=== PATIENT | male | born 1955 | race Caucasian/White ===

== ENCOUNTER 2019-06-08 20:30 | Outpatient (CLI) | payer BC | END 2019-06-08 20:31 | disposition home or self-care (01) | LOC: SLEEPLAB 20:30 | PROVIDERS: ATTEND Family Medicine | DX: G47.33 Obstructive sleep apnea (adult) (pediatric) (principal); G47.61 Periodic limb movement disorder; G47.9 Sleep disorder, unspecified; R53.83 Other fatigue; R40.0 Somnolence; G31.84 Mild cognitive impairment of uncertain or unknown etiology; K21.9 Gastro-esophageal reflux disease without esophagitis; E66.9 Obesity, unspecified; R06.83 Snoring; F41.9 Anxiety disorder, unspecified; I10 Essential (primary) hypertension; R73.03 Prediabetes; Z68.34 Body mass index [BMI] 34.0-34.9, adult | CPT/HCPCS: 95811 ==

== ENCOUNTER 2020-01-26 06:32 | Outpatient (CLI) | payer BC ==
[2020-01-26 11:40] LABS: #Basophils 0.1 10x3/uL (0.0-0.2); #Eosinphils 0.2 10x3/uL (0.0-0.5); #Monocytes 0.4 10x3/uL (0.0-1.1); #Neutrophils 3.4 10x3/uL (1.5-8.4); %Basophils 0.8 % (0.0-2.0); %Eosinophils 3.7 % (0.0-6.0); %Lymphocytes 31.6 % (18.0-47.0); %Monocytes 6.5 % (0.0-10.0); %Neutrophils 56.7 % (40.0-75.0); Hemoglobin 14.1 g/dL (14.0-18.0); Mean Corpuscular HGB CONC 33.3 G/DL (32.0-36.0); Mean Corpuscular Volume 87.1 fl (80.0-100.0); Mean Platelet Volume 9.5 fl (7.4-10.4); Platelet Count 201 10x3/uL (130-400); RBC Distribution Width 12.8 % (11.5-14.5); Red Blood Cell (RBC) Count 4.87 10x6/uL (4.40-5.80)
[2020-01-26 11:53] LABS: Anion Gap 16 mmol/L (10-20); BUN (Urea Nitrogen) 18 mg/dL (8.4-25.7); Calc. Creatinine Clearance 0 mL/min (70-130); Calcium 9.3 mg/dL (7.8-10.44); Carbon Dioxide 27 mmol/L (23-31); Chloride 108 mmol/L (98-107); Estimated GFR-MDRD 71; Glucose 154 mg/dL (80-115); Potassium 4.5 mmol/L (3.5-5.1); Sodium 146 mmol/L (136-145)
[2020-01-26 23:43] LABS: SARS-CoV-2 MS2 Positive; SARS-CoV-2 N Gene Negative; SARS-CoV-2 S Gene Negative; SARS-CoV-2 by NAA Not Detected (NotDetected); SARS-CoV-2 orf1ab Negative
== END 2020-01-26 06:33 | disposition home or self-care (01) ==
LOC: LABBT 06:32
PROVIDERS: ATTEND Orthopaedic Surgery
DX: Z01.818 Encounter for other preprocedural examination (principal); Z20.828 Contact with and (suspected) exposure to other viral communicable diseases; S83.242A Other tear of medial meniscus, current injury, left knee, initial encounter
CPT/HCPCS: 80048; 85025; 87635; 93005; 93010; U0003

== ENCOUNTER → 2020-01-29 | Day surgery (SDC) | payer BC ==
[2020-01-28 09:31] VITALS: BMI 31.3
[~2020-01-29] MED LIST: Bupivacaine 0.25% HCL 30 ML VIAL ONE; Bupivacaine HCl 0.5%/Epinephrine 1:200,000/PF 30 ml Vial ONE; Bupivacaine PF 0.5% 30 ML VIAL ONE; Dexamethasone 20 MG/5 ML VIAL ONE; Fentanyl 100 MCG/2 ML VIAL ONE; Lidocaine 1% (PF) 30 ML VIAL ONE; Lidocaine 1% PF 5 ML VIAL ONE; Lidocaine 1% w/Epinephrine 1:100K 20 ML VIAL ONE; Lidocaine 2% w/Epinephrine 1:200K 20 ML VIAL ONE; Ondansetron PF 4 MG/2 ML Vial ONE; PHENYLEPHRINE-NS 100 MCG/ML 10 ML SYRINGE ONE; PROPOFOL 20 ML ONE; PROPOFOL 200 MG/20 ML VIAL ONE; ePHEDrine 50 MG/ML VIAL ONE
--- NOTE | 2020-01-29 09:04 | OP ---
DATE OF PROCEDURE: 01/29/2020 TITLE OF PROCEDURE: Left knee arthroscopic partial medial meniscectomy. PREOPERATIVE DIAGNOSIS: Medial meniscus tear. POSTOPERATIVE DIAGNOSIS: Medial meniscus tear. ANESTHESIA: General. BLOOD LOSS: Minimal. SPECIMENS: None. DRAINS: None. COMPLICATIONS: None. DESCRIPTION OF PROCEDURE: After appropriate consent was obtained, the patient was taken to the operating room where general anesthesia was induced. Left leg was prepped and draped in the usual sterile fashion. Scope was placed in the lateral portal. Probe was placed in the medial portal. He had a complex tear involving most of the posterior medial meniscus including the posterior root. I debrided this using basket forceps and smoothed using a 4.0 full-radius resector. 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 Lateral compartment is intact. 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 Suprapatellar pouch was irrigated. There were no loose bodies. The knee was drained. Sterile dressing was applied. Job ID: [id number]
== END ==
LOC: SDC 06:01
PROVIDERS: ATTEND Orthopaedic Surgery
PROC: 0SBD4ZZ Excision of Left Knee Joint, Percutaneous Endoscopic Approach (ICD-10-PCS; principal; 2020-01-29)
DX: S83.232A Complex tear of medial meniscus, current injury, left knee, initial encounter (principal); M94.262 Chondromalacia, left knee; M17.12 Unilateral primary osteoarthritis, left knee; I10 Essential (primary) hypertension; Z79.899 Other long term (current) drug therapy
CPT/HCPCS: J0690; J1100; J2001; J2405; J2704; J3010; J3490; S0020